=== PATIENT | female | born 1935 | race Caucasian/White ===

== ENCOUNTER 2017-07-25 11:40 | Emergency (ER) | payer OTHER ==
[~2017-07-25] VITALS: Ht 160 cm; Wt 97.1 kg
[~2017-07-25 11:40] MED LIST: ALBUAER17 INH; FLUT250M9 INH; HYDR25TA4 PO; METO25TA5 PO; SIMV-8 PO; WARF5TAB71 PO
[2017-07-25 13:17] LABS: Basophils # (auto) 0.1 uL; Eosinophils # (auto) 0.4 uL; Eosinophils % (auto) 3.9 % (0.0-7.0); Hematocrit 48.4 % (36.0-46.0); Lymphocytes # (auto) 3.3 uL; Lymphocytes % (auto) 29.8 % (10.0-50.0); Mean Corpuscular Hemoglobin 30.1 pg (28.0-32.0); Mean Corpuscular Volume 91.1 fL (80.0-100.0); Monocytes # (auto) 0.9 uL; Neutrophils # (auto) 6.3 uL; Neutrophils % (auto) 57.3 % (37.0-80.0); Platelet Count (auto) 300 10^3/uL (140-450); Red Blood Cells 5.31 10^6/uL (4.0-5.20); Red Cell Distribution Width 13.9 % (11.8-14.3)
[2017-07-25 13:32] LABS: Alanine Aminotransferase 27 U/L (13-56); Albumin 3.3 g/dL (3.4-5.0); Anion Gap 4 (5-15); Aspartate Aminotransferase 19 U/L (15-37); BUN/Creatinine Ratio 16.8; Blood Urea Nitrogen 17 mg/dL (7-18); Calcium 8.9 mg/dL (8.5-10.1); Carbon Dioxide 34 mmol/L (21-32); Chloride 103 mmol/L (98-107); GFR African American 68 mL/min; GFR Non-African American 56 mL/min; Glucose 101 mg/dL (74-106); Potassium 3.3 mmol/L (3.5-5.1); Sodium 141 mmol/L (136-145)
[2017-07-25 13:37] LABS: Alkaline Phosphatase 42 U/L (45-117); Bilirubin, Total 0.4 mg/dL (0.2-1.0); Total Protein 7.2 g/dL (6.4-8.2)
[2017-07-25] MEDS ORDERED: POTASSIUM CHL 10% (20 MEQ/15ML) 15ml ORAL SOLN PO ONE (14:30)
[2017-07-25 14:39] VITALS: BP 150/89
== END 2017-07-25 14:42 | disposition home or self-care (01) ==
LOC: ER 11:40
DX: J04.0 Acute laryngitis (principal); R07.9 Chest pain, unspecified; J45.909 Unspecified asthma, uncomplicated; I10 Essential (primary) hypertension; E78.5 Hyperlipidemia, unspecified; Z90.49 Acquired absence of other specified parts of digestive tract; Z90.710 Acquired absence of both cervix and uterus; Z79.01 Long term (current) use of anticoagulants; Z86.711 Personal history of pulmonary embolism
CPT/HCPCS: 36415; 71046; 80053; 84484; 85025; 93005

== ENCOUNTER 2019-11-22 10:10 | Inpatient (IN) | payer OTHER ==
[~2019-11-22] VITALS: Ht 160 cm; Wt 105.0 kg
[~2019-11-22 10:10] MED LIST changes: -ALBUAER17 INH; -METO25TA5 PO; -WARF5TAB71 PO
[2019-11-22] MEDS ORDERED: FUROSEMIDE 20 MG/2 ML VIAL IV ONE (10:30)
[2019-11-22] MEDS ORDERED: methylPREDNISolone SOD SUCC 125 MG/2 ML VL IV ONE (10:30)
[2019-11-22 10:52] LABS: Basophils # (auto) 0.1 10 ^3/uL (0-0.2); Basophils % (auto) 1.3 % (0.0-2.0); Eosinophils # (auto) 0.5 10 ^3/uL (0-0.8); Eosinophils % (auto) 4.8 % (0.0-7.0); Hematocrit 51.1 % (36.0-46.0); Hemoglobin 16.4 g/dL (12.2-16.2); Lymphocytes % (auto) 27.5 % (10.0-50.0); Mean Corpuscular Hemoglobin 28.7 pg (28.0-32.0); Mean Corpuscular Volume 89.7 fL (80.0-100.0); Monocytes # (auto) 0.7 10 ^3/uL (0-1.3); Monocytes % (auto) 6.2 % (0.0-12.0); Neutrophils # (auto) 6.5 10 ^3/uL (1.6-8.6); Neutrophils % (auto) 60.2 % (37.0-80.0); Nucleated Red Blood Cells % 0.1 %; Platelet Count (auto) 241 10^3/uL (140-450); Red Cell Distribution Width 14.2 % (11.8-14.3); White Blood Cell 10.8 10^3/uL (4.4-10.8)
[2019-11-22] MEDS ORDERED: IPRATROPIUM BROM 0.5 MG/2.5ML INH SOL NEB ONE (11:00)
[2019-11-22] MEDS ORDERED: ALBUTEROL SULF 2.5 MG/0.5ML(0.5%) NEB SOLN NEB ONE (11:00)
[2019-11-22 11:07] LABS: INR 1.01 (0.9-1.15); Partial Thromboplastin Time 24.2 sec (23.64-32.05)
[2019-11-22 11:08] LABS: Alanine Aminotransferase 30 U/L (13-56); Albumin 3.5 g/dL (3.4-5.0); Anion Gap 8 (5-15); Blood Urea Nitrogen 17 mg/dL (7-18); Carbon Dioxide 27 mmol/L (21-32); Chloride 106 mmol/L (98-107); Glucose 129 mg/dL (74-106); Potassium 4.3 mmol/L (3.5-5.1); Sodium 141 mmol/L (136-145)
[2019-11-22 11:14] LABS: Alkaline Phosphatase 47 U/L (45-117); Aspartate Aminotransferase 23 U/L (15-37); BUN/Creatinine Ratio 16.5; Bilirubin, Total 0.5 mg/dL (0.2-1.0); GFR African American 66 mL/min; GFR Non-African American 55 mL/min
[2019-11-22 11:42] LABS: Urine WBC None Seen /hpf (0 - 5)
[2019-11-22 12:12] LABS: Urine Bacteria NONE SEEN /hpf (None Seen); Urine Blood Negative /uL (Negative); Urine Mucus FEW (None Seen); Urine Specific Gravity 1.007 (1.001-1.035)
[2019-11-22] MEDS ORDERED: FURO20TA3 PO (12:42)
[2019-11-22] MEDS ORDERED: POTA-220 PO (12:42)
[2019-11-22] MEDS ORDERED: ALBU108A14 IN (12:42)
[2019-11-22] MEDS ORDERED: ALBUTEROL SULF 2.5 MG/0.5ML(0.5%) NEB SOLN NEB PRN (14:30)
[2019-11-22] MEDS ORDERED: LORazepam 0.5 MG TAB PO PRN (14:30)
[2019-11-22] MEDS ORDERED: TEMAZEPAM 15 MG CAP PO PRN (14:30)
[2019-11-22] MEDS ORDERED: DOXYCYCLINE 100MG/250ML 250 ML IV SCH (14:30)
[2019-11-22] MEDS ORDERED: MORPHINE SULF INJ 2 MG/ML SYRINGE 1ML IV PRN (14:30)
[2019-11-22] MEDS ORDERED: DEXTROSE (50%) 50ML SYRG IV PRN (14:30)
[2019-11-22] MEDS ORDERED: LACTULOSE 20Gm/30ML SOLN PO PRN (14:30)
[2019-11-22] MEDS ORDERED: NITROGLYCERIN 0.4 MG SL TAB SL PRN (14:30)
[2019-11-22] MEDS ORDERED: PROMETHAZINE HCL 25 MG/ML 1ML IV PRN (14:30)
[2019-11-22 14:37] VITALS: BP 156/66
[2019-11-22] MEDS: DOXYCYCLINE 100 MG TAB/CAP PO SCH ×2 (15:24→22:33)
[2019-11-22 17:03] VITALS: BP 141/77
--- NOTE | 2019-11-22 17:03 | NUR ---
Telemetry admit from ER ANDRIYPLACIDO Krueger admitted to Telemetry unit after SBAR received. Patient oriented to ROCKY LOZADA primary RN, unit, room 217B, and unit policies regarding patient care and visiting hours. Patient now on continuous telemetry monitoring, tele box # 42 and telemetry reading on arrival to unit is NORMAL SINUS RHYTHM 89. Patient placed on bedside oxygen at 2L/m via nasal cannula with oxygen saturation at 93%, weighed by bedscale and encouraged to call if they need something. All questions and concerns addressed, patient verbalized understanding.
[2019-11-22] MEDS: ACCU-CHEK COMFORT CURVE STRIP VI SCH ×2 (17:17→22:34)
--- NOTE | 2019-11-22 17:20 | NUR ---
PAGED HOSPITALIST REGARDING BLOOD SUGAR Blood sugar 260, no sliding scale ordered. Gi RODRIGUEZ ordered moderate scale, order read back and verified.
[2019-11-22 17:43] VITALS: BP 141/77
[2019-11-22] MEDS: methylPREDNISolone SOD SUCC 40 MG/ML VL IV SCH ×2 (17:44→23:43)
[2019-11-22] MEDS: InsuLIN REG 1unit/0.01ml Soln (100units/ml) SC SCH ×2 (17:44→22:53)
--- NOTE | 2019-11-22 17:50 | NUR ---
PATIENT MEDICATIONS TAKEN TO PHARMACY POM WRISTBAND PLACED ON PATIENT AND SUPERVISOR FELLING BUCKING CHART.
--- NOTE | 2019-11-22 18:37 | NUR ---
CALL FROM FAMILY call from patient's daughter Chey. Patient's daughter is deaf and pet handler was on the phone, after verification of password she was updated on the plan of care and the patient's current status. All questions were answered and she verbalized understanding.
[2019-11-22] MEDS: ALBUTEROL SULF 2.5 MG/0.5ML(0.5%) NEB SOLN NEB SCH (18:47)
[2019-11-22] MEDS: IPRATROPIUM BROM 0.5 MG/2.5ML INH SOL NEB SCH (18:48)
[2019-11-22] MEDS: BUDESONIDE (INHALATION) 0.5 MG/2 ML NEB NEB SCH (18:48)
--- NOTE | 2019-11-22 19:40 | NUR ---
Opening Shift Note Assumed care of patient, awake and alert, oriented x 4, follows direction. On oxygen at 2L via NC with even and unlabored respirations, no S/S of distress/SOB or pain. patient turns independently in bed. Patient uses BSC independently. Bed in low locked position with side rails up x 2 and call light within reach. Instructed on POC and to call for assist PRN, will continue to monitor for changes Q1hr and PRN.
[2019-11-22 22:00] VITALS: BP 162/68
[2019-11-22] MEDS: FAMOTIDINE 20 MG TAB PO SCH (22:33)
[2019-11-22] MEDS: SODIUM CHLOR 0.9% PF (SALINE LOCK) 10ML VIAL/SYR IV SCH (22:33)
[2019-11-22] MEDS: ATORVASTATIN 20 MG TAB PO SCH (22:34)
[2019-11-22] MEDS: traMADol HCL 50 MG TAB PO PRN (22:44)
[2019-11-22 22:53] VITALS: BP 143/71
[2019-11-23] MEDS: IPRATROPIUM BROM 0.5 MG/2.5ML INH SOL NEB SCH ×4 (00:15→19:55)
[2019-11-23] MEDS: ALBUTEROL SULF 2.5 MG/0.5ML(0.5%) NEB SOLN NEB SCH ×4 (00:15→19:55)
[2019-11-23 05:00] VITALS: BP 144/65
[2019-11-23] MEDS: ACCU-CHEK COMFORT CURVE STRIP VI SCH ×4 (06:05→22:40)
[2019-11-23] MEDS: SODIUM CHLOR 0.9% PF (SALINE LOCK) 10ML VIAL/SYR IV SCH ×3 (06:05→22:38)
[2019-11-23] MEDS: methylPREDNISolone SOD SUCC 40 MG/ML VL IV SCH ×4 (06:18→22:38)
[2019-11-23] MEDS: InsuLIN REG 1unit/0.01ml Soln (100units/ml) SC SCH ×4 (06:24→22:55)
[2019-11-23] MEDS: BUDESONIDE (INHALATION) 0.5 MG/2 ML NEB NEB SCH ×2 (06:27→19:55)
--- NOTE | 2019-11-23 07:07 | NUR ---
Closing Note patient awake resting in bed with even and unlabored respirations, on oxygen at 2L via NC, no s/s of distress. Bed in lowest locked position with side rails up x 2 and call light within reach. Endorsed care to day shift RN.
[2019-11-23 09:00] VITALS: BP 132/72
--- NOTE | 2019-11-23 09:06 | NUR ---
OPENING SHIFT NOTE: PATIENT RESTING IN BED, ASLEEP. EASILY AWOKE. A/OX4, NO C/O PAIN. UPDATED ON PLAN OF CARE. RESPIRATIONS EVEN AND UNLABORED. CALL LIGHT WITHIN REACH, FALL PRECAUTIONS IN PLACE. WILL CONTINUE TO MONITOR.
[2019-11-23] MEDS: ENOXAPARIN SOD 40 MG/0.4 ML SYRINGE SC SCH (09:53)
[2019-11-23] MEDS: FUROSEMIDE 20 MG TAB PO SCH (09:53)
[2019-11-23] MEDS: POTASSIUM CHL 20 Meq TABLET PO SCH (09:53)
[2019-11-23] MEDS: traMADol HCL 50 MG TAB PO PRN (09:54)
[2019-11-23] MEDS: FAMOTIDINE 20 MG TAB PO SCH ×2 (09:54→22:39)
[2019-11-23] MEDS: DOXYCYCLINE 100 MG TAB/CAP PO SCH ×2 (09:54→22:40)
[2019-11-23] MEDS ORDERED: DOCUSATE SOD 100 MG CAP PO PRN (12:15)
[2019-11-23 12:53] VITALS: BP 123/44
--- NOTE | 2019-11-23 13:10 | NUR ---
MD ZOIE SPEARS. CALL MADE TO FLOORING MACHINE FEEDER KARLEY.
--- NOTE | 2019-11-23 13:46 | NUR ---
SOLU-MEDROL: 40MG DOSE CHANGED TO 60. 40MG WASTED, WILL ADMINISTER 60 ORDERED BY MD LINO.
[2019-11-23 17:00] VITALS: BP 134/75
--- NOTE | 2019-11-23 17:07 | NUR ---
ARBOLEDA REMOVED: CATHETER INTACT, 10 CC ASPIRATED OUT OF BALLOON. PATIENT ABLE TO AMBULATE TO TOILET SAFELY INDEPENDENTLY.
--- NOTE | 2019-11-23 18:50 | NUR ---
CARE ENDORSED TO NOC RN.
--- NOTE | 2019-11-23 19:40 | NUR ---
Opening Shift Note Assumed care of patient, awake and alert x4. No S/S of distress/SOB or pain. Call light is within reach, side rails up x2, bed is in the lowest position, fall precautions are in place. Instructed on POC and to call for assist PRN, will continue to monitor for changes Q1hr and PRN.
[2019-11-23 20:00] VITALS: BP 125/56
--- NOTE | 2019-11-23 20:20 | NUR ---
Patient's daughter Chey called, password provided, she was updated on patient's status and current POC. All questions and concerns answered.
[2019-11-23] MEDS: ACETAMINOPHEN 500 MG TAB PO PRN (21:18)
[2019-11-23 22:00] VITALS: BP 125/56
[2019-11-23] MEDS: ATORVASTATIN 20 MG TAB PO SCH (22:39)
[2019-11-24] MEDS: ALBUTEROL SULF 2.5 MG/0.5ML(0.5%) NEB SOLN NEB SCH ×7 (00:06→21:48)
[2019-11-24] MEDS: IPRATROPIUM BROM 0.5 MG/2.5ML INH SOL NEB SCH ×7 (00:06→21:48)
[2019-11-24 05:00] VITALS: BP 138/61
[2019-11-24] MEDS: SODIUM CHLOR 0.9% PF (SALINE LOCK) 10ML VIAL/SYR IV SCH ×3 (06:27→21:55)
[2019-11-24] MEDS: methylPREDNISolone SOD SUCC 40 MG/ML VL IV SCH ×3 (06:28→21:56)
[2019-11-24] MEDS: InsuLIN REG 1unit/0.01ml Soln (100units/ml) SC SCH ×4 (06:30→22:02)
[2019-11-24] MEDS: ACCU-CHEK COMFORT CURVE STRIP VI SCH ×4 (06:31→21:56)
[2019-11-24] MEDS: BUDESONIDE (INHALATION) 0.5 MG/2 ML NEB NEB SCH ×2 (07:02→21:48)
--- NOTE | 2019-11-24 07:20 | NUR ---
Opening Shift Note Assumed care of patient, awake and alert. No S/S of distress/SOB or pain. Instructed on POC and to call for assist PRN, will continue to monitor for changes Q1hr and PRN. Bed locked in lowest position with two side rails up and call light in reach.
[2019-11-24 08:00] VITALS: BP 137/82
[2019-11-24 09:27] VITALS: BP 137/82
[2019-11-24] MEDS: FUROSEMIDE 20 MG TAB PO SCH (10:54)
[2019-11-24] MEDS: POTASSIUM CHL 20 Meq TABLET PO SCH (10:54)
[2019-11-24] MEDS: FAMOTIDINE 20 MG TAB PO SCH ×2 (10:54→21:56)
[2019-11-24] MEDS: ENOXAPARIN SOD 40 MG/0.4 ML SYRINGE SC SCH (10:55)
[2019-11-24] MEDS: DOXYCYCLINE 100 MG TAB/CAP PO SCH ×2 (10:55→21:56)
[2019-11-24] MEDS: ACETAMINOPHEN 500 MG TAB PO PRN (12:36)
[2019-11-24 13:00] VITALS: BP 130/52
[2019-11-24] MEDS ORDERED: ALBUTEROL SULF 2.5 MG/0.5ML(0.5%) NEB SOLN NEB PRN (15:00)
--- NOTE | 2019-11-24 15:30 | NUR ---
TRANSFER RECEIVED REPORT FROM KALI STEVENSON. ALL QUESTIONS/CONCERNS ANSWERED. WILL CONTINUE PLAN OF CARE
[2019-11-24 17:00] VITALS: BP 123/63
--- NOTE | 2019-11-24 19:35 | NUR ---
Opening Shift Note Assumed care of patient, awake and alert X4. No S/S of distress/SOB or pain. Call light is within reach, side rails up x2, bed is in the lowest position. Instructed on POC and to call for assist PRN. All questions and concerns answered, will continue to monitor for changes Q1hr and PRN. Bed locked in lowest position with two side rails up and call light in reach.
[2019-11-24 21:49] VITALS: BP 139/64
[2019-11-24] MEDS: ATORVASTATIN 20 MG TAB PO SCH (22:02)
--- NOTE | 2019-11-24 23:10 | NUR ---
IV removal from RFA due to leaking IV DC'd with clean sterile technique, catheter fully intact. Pressure dressing applied to site. Patient tolerated well.
--- NOTE | 2019-11-24 23:18 | NUR ---
IV insertion IV access obtained, via clean sterile technique by inserting 22 gauge catheter at LFA after 3 attempt(s). IV secured properly. No trauma to site. Patient tolerated well.
[2019-11-25] VITALS (7 sets, daily range): BP systolic 107–144; BP diastolic 57–80
[2019-11-25] MEDS: ALBUTEROL SULF 2.5 MG/0.5ML(0.5%) NEB SOLN NEB SCH ×6 (02:00→22:07)
[2019-11-25] MEDS: IPRATROPIUM BROM 0.5 MG/2.5ML INH SOL NEB SCH ×6 (02:00→22:07)
--- NOTE | 2019-11-25 02:07 | NUR ---
Respiratory note: SCHEDULED MED NEB TX NOT GIVEN. PT WAS ASLEEP, NO RESP DISTRESS NOTED. PT DID NOT WANT TX AT THIS TIME.
--- NOTE | 2019-11-25 04:32 | NUR ---
Paged respiratory. Patient is asking for a breathing treatment.
--- NOTE | 2019-11-25 04:33 | NUR ---
Patient is complaining of a headache 6/0-10 and is requesting a Tylenol. Tylenol given for pain, will reassess.
[2019-11-25] MEDS: ACETAMINOPHEN 500 MG TAB PO PRN (04:36)
--- NOTE | 2019-11-25 04:40 | NUR ---
RT is at bedside administering a breathing treatment.
[2019-11-25] MEDS: methylPREDNISolone SOD SUCC 40 MG/ML VL IV SCH ×3 (06:41→22:10)
[2019-11-25] MEDS: SODIUM CHLOR 0.9% PF (SALINE LOCK) 10ML VIAL/SYR IV SCH ×3 (06:41→22:10)
[2019-11-25] MEDS: ACCU-CHEK COMFORT CURVE STRIP VI SCH ×4 (06:41→22:12)
[2019-11-25] MEDS: InsuLIN REG 1unit/0.01ml Soln (100units/ml) SC SCH ×4 (06:43→22:13)
[2019-11-25] MEDS: BUDESONIDE (INHALATION) 0.5 MG/2 ML NEB NEB SCH ×2 (09:53→22:07)
[2019-11-25] MEDS: FAMOTIDINE 20 MG TAB PO SCH ×2 (10:30→22:11)
[2019-11-25] MEDS: POTASSIUM CHL 20 Meq TABLET PO SCH (10:30)
[2019-11-25] MEDS: FUROSEMIDE 20 MG TAB PO SCH (10:30)
[2019-11-25] MEDS: DOXYCYCLINE 100 MG TAB/CAP PO SCH ×2 (10:30→22:11)
[2019-11-25] MEDS: ENOXAPARIN SOD 40 MG/0.4 ML SYRINGE SC SCH (10:31)
--- NOTE | 2019-11-25 12:40 | NUR ---
Est energy needs [id number] kcal (14-16 kcal/kg BW 102.4kg) Est protein needs 52-68g (1-1.3g/kg IBW 52.3kg) Will reassess prn. Addendum: 11/25/19 at [address] Amended: Links added.
--- NOTE | 2019-11-25 19:02 | NUR ---
RT NOTE PT WAS SEEN BY RT FOR HHN TX. PT TOLERATES WELL VIA MOUTHPIECE. NO ADVERSE REACTION NOTED. PT FOUND ON RROM AIR WITH SATS AT 91%. NASAL CANNULA LEFT ON AT 2L FOR PT USE THROUGHOUT THE NIGHT IF NEEDED. CONT ORDERED Addendum: 11/25/19 at 1931 by Tanika Son RT Amended: Links added.
--- NOTE | 2019-11-25 19:10 | NUR ---
Opening shift note Assumed care of patient who is A&Ox4, respirations even and non-labored with no s/s of distress. Discussed POC with patient who verbalized understanding. IV patent and saline locked at this time. Bed in lowest locked position with 2 side rails up. Call light within reach. Will continue to monitor.
[2019-11-25] MEDS: ATORVASTATIN 20 MG TAB PO SCH (22:10)
--- NOTE | 2019-11-25 22:17 | NUR ---
RT NOTE PT WAS SEEN BY RT FOR HHN TX. PT TOLERATES WELL VIA MOUTHPIECE. NO ADVERSE REACTION NOTED. CONT ORDERED Addendum: 11/26/19 at 0308 by Tanika Son RT Amended: Links added.
[2019-11-26] MEDS: ALBUTEROL SULF 2.5 MG/0.5ML(0.5%) NEB SOLN NEB SCH ×5 (02:12→18:25)
[2019-11-26] MEDS: IPRATROPIUM BROM 0.5 MG/2.5ML INH SOL NEB SCH ×5 (02:12→18:25)
--- NOTE | 2019-11-26 02:30 | NUR ---
RT NOTE PT WAS SEEN BY RT FOR HHN TX. PT TOLERATES WELL VIA MOUTHPIECE. NO ADVERSE REACTION NOTED. CONT ORDERED Addendum: 11/26/19 at 0309 by Tanika Son RT Amended: Links added.
[2019-11-26 04:55] VITALS: BP 105/49
[2019-11-26] MEDS: methylPREDNISolone SOD SUCC 40 MG/ML VL IV SCH ×2 (06:03→14:49)
[2019-11-26] MEDS: SODIUM CHLOR 0.9% PF (SALINE LOCK) 10ML VIAL/SYR IV SCH ×2 (06:03→14:00)
[2019-11-26] MEDS: ACCU-CHEK COMFORT CURVE STRIP VI SCH ×3 (06:04→17:00)
[2019-11-26 06:14] LABS: Basophils # (auto) 0 10 ^3/uL (0-0.2); Basophils % (auto) 0.2 % (0.0-2.0); Eosinophils # (auto) 0 10 ^3/uL (0-0.8); Hematocrit 49.6 % (36.0-46.0); Hemoglobin 16.3 g/dL (12.2-16.2); Lymphocytes # (auto) 1.2 10 ^3/uL (0.4-5.4); Lymphocytes % (auto) 6.9 % (10.0-50.0); Mean Corpuscular Hemoglobin 29.4 pg (28.0-32.0); Mean Corpuscular Hgb Conc. 32.8 g/dL (32.0-36.0); Mean Corpuscular Volume 89.7 fL (80.0-100.0); Monocytes # (auto) 0.5 10 ^3/uL (0-1.3); Monocytes % (auto) 2.9 % (0.0-12.0); Neutrophils # (auto) 15.8 10 ^3/uL (1.6-8.6); Nucleated Red Blood Cells % 0.1 %; Platelet Count (auto) 293 10^3/uL (140-450); Red Blood Cells 5.53 10^6/uL (4.0-5.20); Red Cell Distribution Width 14.2 % (11.8-14.3); White Blood Cell 17.5 10^3/uL (4.4-10.8)
[2019-11-26] MEDS: InsuLIN REG 1unit/0.01ml Soln (100units/ml) SC SCH ×3 (06:15→17:00)
[2019-11-26] MEDS: ACETAMINOPHEN 500 MG TAB PO PRN (06:16)
--- NOTE | 2019-11-26 06:20 | NUR ---
Pain Patient c/o 08/06 headache. Administered 500 mg Tylenol per EMAR. Will continue to monitor.
[2019-11-26 06:32] LABS: Calcium 9.2 mg/dL (8.5-10.1); Magnesium 2.6 mg/dL (1.6-2.6); Potassium 4.6 mmol/L (3.5-5.1)
[2019-11-26 06:35] LABS: BUN/Creatinine Ratio 28.1
--- NOTE | 2019-11-26 07:15 | NUR ---
Closing shift note Patient sitting up, A&Ox4, no s/s of distress. Endorsed care to day shift RN, Melodie.
[2019-11-26 08:00] VITALS: BP 149/80
[2019-11-26 09:11] VITALS: BP 149/80
[2019-11-26] MEDS: ENOXAPARIN SOD 40 MG/0.4 ML SYRINGE SC SCH (10:00)
[2019-11-26] MEDS: BUDESONIDE (INHALATION) 0.5 MG/2 ML NEB NEB SCH ×2 (10:39→18:26)
[2019-11-26] MEDS: POTASSIUM CHL 20 Meq TABLET PO SCH (11:04)
[2019-11-26] MEDS: DOXYCYCLINE 100 MG TAB/CAP PO SCH (11:04)
[2019-11-26] MEDS: FAMOTIDINE 20 MG TAB PO SCH (11:04)
[2019-11-26] MEDS: FUROSEMIDE 20 MG TAB PO SCH (11:04)
[2019-11-26 12:38] VITALS: BP 135/73
[2019-11-26 17:09] VITALS: BP 149/80
--- NOTE | 2019-11-26 18:30 | NUR ---
Discharge instructions given as ordered. Encourage to follow up with PMD as instructed. All questions and concerns addressed. Patient verbalized understanding. Medication reconciliation form completed and copy given to patient. No Home medications held in Pharmacy and none to be returned to patient, and no needed vaccines given. IV removed with catheter intact, pressure dressing applied. Telemetry unit returned to ICU. Patient taken to vehicle via wheelchair with all personal belongings, accompanied by staff and family member. No distress noted at time of departure. Prescriptions in hand.
== END 2019-11-26 18:40 | disposition home or self-care (01) | DRG 202 ==
LOC: ER 10:10 → TELE 10:11 → TELE-CENTR 17:15
PROVIDERS: ADMIT Internal Medicine; ATTEND Internal Medicine
DX: J45.41 Moderate persistent asthma with (acute) exacerbation (principal); J96.01 Acute respiratory failure with hypoxia; J44.1 Chronic obstructive pulmonary disease with (acute) exacerbation; F41.9 Anxiety disorder, unspecified; E66.01 Morbid (severe) obesity due to excess calories; D72.829 Elevated white blood cell count, unspecified; I50.9 Heart failure, unspecified; I11.0 Hypertensive heart disease with heart failure; Z71.3 Dietary counseling and surveillance; Z57.31 Occupational exposure to environmental tobacco smoke; Z90.710 Acquired absence of both cervix and uterus; Z90.49 Acquired absence of other specified parts of digestive tract; Z82.5 Family history of asthma and other chronic lower respiratory diseases; T38.0X5A Adverse effect of glucocorticoids and synthetic analogues, initial encounter; Y92.89 Other specified places as the place of occurrence of the external cause; Z68.39 Body mass index [BMI] 39.0-39.9, adult
CPT/HCPCS: 36415; 51702; 71045; 71046; 80048; 80053; 81001; 82728; 82962; 83036; 83615; 83735; 83880; 84484; 85025; 85610; 85730; 87070; 87804; 87880; 93005; 94640; 96372; 96374; 96375; 99291; G0378; J1815

== ENCOUNTER → 2022-04-09 | Emergency (ER) | payer OTHER ==
[~2022-04-09] VITALS: Ht 160 cm; Wt 99.5 kg
[~2022-04-09] MED LIST changes: +ALBU108A14 IN; +ALBUTEROL SULF 2.5 MG/0.5ML(0.5%) NEB SOLN NEB ONE; +AZIT500T PO; +AZITHROMYCIN 250 MG TAB PO ONE; +DexAMETHasone 4 MG TAB PO ONE; +FURO20TA3 PO; -HYDR25TA4 PO; +IPRATROPIUM BROM 0.5 MG/2.5ML INH SOL NEB ONE; +LORazepam 2MG/ML-1ML VIAL IV ONE; +MAGNESIUM SULFATE 1GM/100ML 100 ML IV ONE; +METH4PAK PO; +POTA-220 PO; +methylPREDNISolone SOD SUCC 125 MG/2 ML VL IV ONE
[2022-04-09 07:38] LABS: Basophils # (auto) 0.1 10 ^3/uL (0-0.2); Basophils % (auto) 0.4 % (0.0-2.0); Eosinophils # (auto) 0.2 10 ^3/uL (0-0.8); Eosinophils % (auto) 1.4 % (0.0-7.0); Hematocrit 47.7 % (36.0-46.0); Hemoglobin 15.3 g/dL (12.2-16.2); Lymphocytes # (auto) 2.7 10 ^3/uL (0.4-5.4); Lymphocytes % (auto) 16.4 % (10.0-50.0); Mean Corpuscular Hemoglobin 29.3 pg (28.0-32.0); Mean Corpuscular Hgb Conc. 32.2 g/dL (32.0-36.0); Mean Corpuscular Volume 91.3 fL (80.0-100.0); Monocytes # (auto) 1.2 10 ^3/uL (0-1.3); Monocytes % (auto) 7.6 % (0.0-12.0); Neutrophils % (auto) 74.2 % (37.0-80.0); Red Blood Cells 5.23 10^6/uL (4.0-5.20); Red Cell Distribution Width 14.3 % (11.8-14.3); White Blood Cell 16.2 10^3/uL (4.4-10.8)
[2022-04-09 07:45] LABS: Albumin 3.1 g/dL (3.4-5.0); BUN/Creatinine Ratio 15.1; Potassium 3.9 mmol/L (3.5-5.1)
[2022-04-09 07:48] LABS: Bilirubin, Total 0.6 mg/dL (0.2-1.0); Total Protein 6.5 g/dL (6.4-8.2)
[2022-04-09 16:14] VITALS: BP 154/93
== END | disposition admitted as inpatient to this hospital (09) ==
LOC: ER 06:34
DX: J45.909 Unspecified asthma, uncomplicated (principal); I10 Essential (primary) hypertension; Z90.49 Acquired absence of other specified parts of digestive tract; Z90.710 Acquired absence of both cervix and uterus; Z90.89 Acquired absence of other organs; Z98.890 Other specified postprocedural states
CPT/HCPCS: 36415; 71046; 80053; 84484; 85025; 93005; 94644; 96365; 96366; 96375; 99291; J2060; J2930; J3475; J7644; J8540; 94640

== ENCOUNTER 2022-07-17 23:06 | Inpatient (IN) | payer OTHER ==
[~2022-07-17] VITALS: Ht 160 cm; Wt 96.3 kg
[~2022-07-17 23:06] MED LIST changes: -ALBUTEROL SULF 2.5 MG/0.5ML(0.5%) NEB SOLN NEB ONE; -AZITHROMYCIN 250 MG TAB PO ONE; -DexAMETHasone 4 MG TAB PO ONE; -IPRATROPIUM BROM 0.5 MG/2.5ML INH SOL NEB ONE; -LORazepam 2MG/ML-1ML VIAL IV ONE; -MAGNESIUM SULFATE 1GM/100ML 100 ML IV ONE; -methylPREDNISolone SOD SUCC 125 MG/2 ML VL IV ONE
[2022-07-18] MEDS ORDERED: ALBUTEROL SULF 2.5 MG/0.5ML(0.5%) NEB SOLN NEB ONE ×3 (00:30→08:30)
[2022-07-18] MEDS ORDERED: DexAMETHasone SOD PHOS 10MG/1ML VIAL INJ IV ONE (00:30)
[2022-07-18] MEDS ORDERED: MAGNESIUM SULFATE 1GM/100ML 100 ML IV ONE (00:30)
[2022-07-18] MEDS ORDERED: IPRATROPIUM BROM 0.5 MG/2.5ML INH SOL NEB ONE ×2 (00:30→08:30)
[2022-07-18] MEDS ORDERED: AZITHROMYCIN 500MG/ 250ML 250 ML IV ONE (00:30)
[2022-07-18] MEDS ORDERED: ALBUTEROL MEDNEB 2.5 mg/3ml NEB ONE ×6 (00:34→21:56)
[2022-07-18 01:08] LABS: Basophils # (auto) 0.1 10 ^3/uL (0-0.2); Basophils % (auto) 0.5 % (0.0-2.0); Eosinophils # (auto) 0.2 10 ^3/uL (0-0.8); Eosinophils % (auto) 1.6 % (0.0-7.0); Hematocrit 43.7 % (36.0-46.0); Hemoglobin 14.5 g/dL (12.2-16.2); Lymphocytes # (auto) 1.5 10 ^3/uL (0.4-5.4); Lymphocytes % (auto) 11.4 % (10.0-50.0); Mean Corpuscular Hemoglobin 30.4 pg (28.0-32.0); Mean Corpuscular Hgb Conc. 33.2 g/dL (32.0-36.0); Mean Corpuscular Volume 91.7 fL (80.0-100.0); Monocytes # (auto) 1.7 10 ^3/uL (0-1.3); Monocytes % (auto) 12.3 % (0.0-12.0); Neutrophils # (auto) 10.1 10 ^3/uL (1.6-8.6); Neutrophils % (auto) 74.2 % (37.0-80.0); Nucleated Red Blood Cells % 0.1 %; Red Blood Cells 4.76 10^6/uL (4.0-5.20); Red Cell Distribution Width 14.2 % (11.8-14.3); White Blood Cell 13.6 10^3/uL (4.4-10.8)
[2022-07-18 01:23] LABS: INR 0.96 (0.9-1.15); Partial Thromboplastin Time 24.5 sec (24.6-33.4)
[2022-07-18 01:24] LABS: Albumin 3.4 g/dL (3.4-5.0); BUN/Creatinine Ratio 22.3; Calcium 9.3 mg/dL (8.5-10.1); Potassium 3.8 mmol/L (3.5-5.1)
[2022-07-18 01:27] LABS: Bilirubin, Total 0.3 mg/dL (0.2-1.0); Total Protein 6.9 g/dL (6.4-8.2)
[2022-07-18] MEDS ORDERED: cefTRIAXone 1GM/50ML D5W 50 ML IV ONE (05:30)
[2022-07-18] MEDS ORDERED: FUROSEMIDE 40 MG/4 ML VIAL IV ONE (08:30)
[2022-07-18] MEDS ORDERED: NITROGLYCERIN 0.4 MG SL TAB SL PRN (11:30)
[2022-07-18] MEDS ORDERED: MORPHINE SULFATE INJ 2 MG/ml SYRG IV PRN (11:30)
[2022-07-18] MEDS ORDERED: PANTOPRAZOLE 40 MG/10 ML VIAL INJ IV ONE (11:30)
[2022-07-18] MEDS: ALBUTEROL SULF 2.5 MG/0.5ML(0.5%) NEB SOLN NEB SCH ×3 (12:01→21:59)
[2022-07-18] MEDS: IPRATROPIUM BROM 0.5 MG/2.5ML INH SOL NEB SCH ×2 (12:01→18:19)
[2022-07-18 12:04] LABS: Magnesium 2.6 mg/dL (1.6-2.6)
[2022-07-18] MEDS ORDERED: PANTOPRAZOLE 40 MG TAB PO ONE (12:15)
[2022-07-18] MEDS ORDERED: methylPREDNISolone SOD SUCC 40 MG/ML VL IM ONE (12:30)
[2022-07-18] MEDS ORDERED: ALPRAZolam 0.5 MG TAB PO ONE (12:45)
[2022-07-18 13:36] VITALS: BP 106/50
[2022-07-18] MEDS: SODIUM CHLORIDE 0.9% 1,000 ML IV SCH (14:30)
[2022-07-18] MEDS ORDERED: IOHEXOL 350 MG/ML 100ML IJ ONE (16:11)
[2022-07-18] MEDS: IPRATROPIUM BROM 0.5 MG/2.5ML INH SOL NEB PRN ×2 (16:41→21:59)
[2022-07-18] MEDS: ALBUTEROL SULF 2.5 MG/0.5ML(0.5%) NEB SOLN NEB PRN (16:41)
[2022-07-18] MEDS: SODIUM CHLOR 0.9% PF (SALINE LOCK) 10ML VIAL/SYR IV SCH (19:58)
[2022-07-18] MEDS: methylPREDNISolone SOD SUCC 125 MG/2 ML VL IV SCH (21:36)
[2022-07-19] MEDS ORDERED: ALBUTEROL MEDNEB 2.5 mg/3ml NEB ONE ×4 (03:10→19:05)
[2022-07-19] MEDS: IPRATROPIUM BROM 0.5 MG/2.5ML INH SOL NEB PRN (03:18)
[2022-07-19] MEDS: ALBUTEROL SULF 2.5 MG/0.5ML(0.5%) NEB SOLN NEB PRN (03:18)
[2022-07-19] MEDS: hydrALAZINE HCL 20 MG/ML VL IV PRN ×3 (04:05→18:53)
[2022-07-19 05:30] LABS: Basophils # (auto) 0 10 ^3/uL (0-0.2); Basophils % (auto) 0.1 % (0.0-2.0); Eosinophils # (auto) 0 10 ^3/uL (0-0.8); Hematocrit 40.7 % (36.0-46.0); Hemoglobin 13.4 g/dL (12.2-16.2); Lymphocytes % (auto) 7.6 % (10.0-50.0); Mean Corpuscular Hemoglobin 30.2 pg (28.0-32.0); Mean Corpuscular Volume 91.6 fL (80.0-100.0); Monocytes # (auto) 0.6 10 ^3/uL (0-1.3); Monocytes % (auto) 4.4 % (0.0-12.0); Neutrophils # (auto) 11.3 10 ^3/uL (1.6-8.6); Neutrophils % (auto) 87.9 % (37.0-80.0); Red Blood Cells 4.44 10^6/uL (4.0-5.20); Red Cell Distribution Width 13.6 % (11.8-14.3); White Blood Cell 12.9 10^3/uL (4.4-10.8)
[2022-07-19] MEDS: IPRATROPIUM BROM 0.5 MG/2.5ML INH SOL NEB SCH ×3 (05:44→19:18)
[2022-07-19] MEDS: ALBUTEROL SULF 2.5 MG/0.5ML(0.5%) NEB SOLN NEB SCH ×2 (05:45→11:26)
[2022-07-19 06:19] LABS: Albumin 2.9 g/dL (3.4-5.0); BUN/Creatinine Ratio 32.3; Bilirubin, Total 0.7 mg/dL (0.2-1.0); Calcium 7.7 mg/dL (8.5-10.1); Total Protein 5.8 g/dL (6.4-8.2)
[2022-07-19] MEDS: SODIUM CHLORIDE 0.9% 1,000 ML IV SCH (06:54)
[2022-07-19] MEDS: cefTRIAXone 1GM/50ML D5W 50 ML IV SCH (08:54)
[2022-07-19] MEDS: PATIENTS OWN MEDICATION (Simvastatin 20 MG) PO SCH (10:00)
[2022-07-19] MEDS ORDERED: PANTOPRAZOLE 40 MG/10 ML VIAL INJ IV SCH (10:00)
[2022-07-19] MEDS: methylPREDNISolone SOD SUCC 125 MG/2 ML VL IV SCH ×2 (10:44→21:11)
[2022-07-19] MEDS: POTASSIUM CHL 20 Meq TABLET PO SCH (10:44)
[2022-07-19] MEDS: ENOXAPARIN SOD 40 MG/0.4 ML SYRINGE SC SCH (10:45)
[2022-07-19] MEDS: FUROSEMIDE 20 MG/2 ML VIAL IV SCH (10:46)
[2022-07-19] MEDS: SODIUM CHLOR 0.9% PF (SALINE LOCK) 10ML VIAL/SYR IV SCH ×2 (10:46→21:12)
[2022-07-19] MEDS: AZITHROMYCIN 500MG/ 250ML 250 ML IV SCH (10:56)
[2022-07-19 22:33] VITALS: BP 157/60
[2022-07-20] MEDS: IPRATROPIUM BROM 0.5 MG/2.5ML INH SOL NEB PRN (01:11)
[2022-07-20] MEDS: ALBUTEROL SULF 2.5 MG/0.5ML(0.5%) NEB SOLN NEB PRN (01:11)
[2022-07-20] MEDS ORDERED: ALBUTEROL MEDNEB 2.5 mg/3ml NEB ONE ×4 (01:13→17:44)
[2022-07-20 02:15] LABS: Urine Bacteria FEW /hpf (None Seen); Urine Blood Negative /uL (Negative); Urine Specific Gravity 1.018 (1.001-1.035); Urine WBC 4 /hpf (0 - 5)
[2022-07-20 05:00] VITALS: BP 188/67
[2022-07-20] MEDS: hydrALAZINE HCL 20 MG/ML VL IV PRN ×3 (05:38→18:50)
[2022-07-20] MEDS: IPRATROPIUM BROM 0.5 MG/2.5ML INH SOL NEB SCH ×3 (05:54→18:39)
[2022-07-20] MEDS: ALBUTEROL SULF 2.5 MG/0.5ML(0.5%) NEB SOLN NEB SCH ×3 (05:54→18:39)
[2022-07-20 06:45] LABS: Basophils # (auto) 0 10 ^3/uL (0-0.2); Basophils % (auto) 0.2 % (0.0-2.0); Eosinophils # (auto) 0 10 ^3/uL (0-0.8); Hematocrit 43.9 % (36.0-46.0); Hemoglobin 15.1 g/dL (12.2-16.2); Lymphocytes # (auto) 1.7 10 ^3/uL (0.4-5.4); Lymphocytes % (auto) 8.2 % (10.0-50.0); Mean Corpuscular Hemoglobin 31.3 pg (28.0-32.0); Mean Corpuscular Hgb Conc. 34.5 g/dL (32.0-36.0); Monocytes # (auto) 1.3 10 ^3/uL (0-1.3); Monocytes % (auto) 6.1 % (0.0-12.0); Neutrophils % (auto) 85.5 % (37.0-80.0); Nucleated Red Blood Cells % 0.2 %; Red Blood Cells 4.82 10^6/uL (4.0-5.20); Red Cell Distribution Width 13.5 % (11.8-14.3)
[2022-07-20 06:53] LABS: BUN/Creatinine Ratio 35.9; Calcium 9.6 mg/dL (8.5-10.1)
[2022-07-20 07:48] LABS: Potassium 4.6 mmol/L (3.5-5.1)
[2022-07-20 08:44] VITALS: BP 149/62
[2022-07-20] MEDS: FUROSEMIDE 20 MG/2 ML VIAL IV SCH (09:02)
[2022-07-20] MEDS: POTASSIUM CHL 20 Meq TABLET PO SCH (09:02)
[2022-07-20] MEDS: methylPREDNISolone SOD SUCC 125 MG/2 ML VL IV SCH ×2 (09:03→21:17)
[2022-07-20] MEDS: SODIUM CHLOR 0.9% PF (SALINE LOCK) 10ML VIAL/SYR IV SCH ×2 (09:03→21:17)
[2022-07-20] MEDS: cefTRIAXone 1GM/50ML D5W 50 ML IV SCH (09:03)
[2022-07-20] MEDS: PATIENTS OWN MEDICATION (Simvastatin 20 MG) PO SCH (09:03)
[2022-07-20] MEDS: ENOXAPARIN SOD 40 MG/0.4 ML SYRINGE SC SCH (09:03)
[2022-07-20] MEDS: AZITHROMYCIN 500MG/ 250ML 250 ML IV SCH (10:08)
[2022-07-20 14:00] VITALS: BP 166/70
[2022-07-20 17:18] VITALS: BP 175/65
[2022-07-21] VITALS (7 sets, daily range): BP systolic 140–155; BP diastolic 40–68
[2022-07-21] MEDS ORDERED: ALBUTEROL MEDNEB 2.5 mg/3ml NEB ONE ×5 (02:40→18:46)
[2022-07-21] MEDS: ALBUTEROL SULF 2.5 MG/0.5ML(0.5%) NEB SOLN NEB SCH ×3 (06:00→18:53)
[2022-07-21] MEDS: IPRATROPIUM BROM 0.5 MG/2.5ML INH SOL NEB SCH ×3 (06:25→18:53)
[2022-07-21] MEDS: methylPREDNISolone SOD SUCC 125 MG/2 ML VL IV SCH ×2 (08:34→21:35)
[2022-07-21] MEDS: POTASSIUM CHL 20 Meq TABLET PO SCH (08:34)
[2022-07-21] MEDS: FUROSEMIDE 20 MG/2 ML VIAL IV SCH (08:35)
[2022-07-21] MEDS: cefTRIAXone 1GM/50ML D5W 50 ML IV SCH (08:35)
[2022-07-21] MEDS: SODIUM CHLOR 0.9% PF (SALINE LOCK) 10ML VIAL/SYR IV SCH ×2 (08:35→21:40)
[2022-07-21] MEDS: ENOXAPARIN SOD 40 MG/0.4 ML SYRINGE SC SCH (08:35)
[2022-07-21 09:00] LABS: Basophils # (auto) 0 10 ^3/uL (0-0.2); Basophils % (auto) 0.1 % (0.0-2.0); Eosinophils # (auto) 0 10 ^3/uL (0-0.8); Hematocrit 42.4 % (36.0-46.0); Hemoglobin 13.9 g/dL (12.2-16.2); Lymphocytes # (auto) 1.6 10 ^3/uL (0.4-5.4); Lymphocytes % (auto) 9.7 % (10.0-50.0); Mean Corpuscular Hemoglobin 30.8 pg (28.0-32.0); Mean Corpuscular Hgb Conc. 32.9 g/dL (32.0-36.0); Mean Corpuscular Volume 93.7 fL (80.0-100.0); Monocytes # (auto) 1.2 10 ^3/uL (0-1.3); Monocytes % (auto) 7.3 % (0.0-12.0); Neutrophils # (auto) 13.3 10 ^3/uL (1.6-8.6); Neutrophils % (auto) 82.9 % (37.0-80.0); Nucleated Red Blood Cells % 0.1 %; Red Blood Cells 4.52 10^6/uL (4.0-5.20); Red Cell Distribution Width 13.9 % (11.8-14.3)
[2022-07-21 09:28] LABS: BUN/Creatinine Ratio 36.9; Calcium 8.2 mg/dL (8.5-10.1)
[2022-07-21] MEDS: PATIENTS OWN MEDICATION (Simvastatin 20 MG) PO SCH (10:00)
[2022-07-21] MEDS: AZITHROMYCIN 500MG/ 250ML 250 ML IV SCH (10:03)
[2022-07-21] MEDS: ALBUTEROL SULF 2.5 MG/0.5ML(0.5%) NEB SOLN NEB PRN ×2 (10:22→14:37)
[2022-07-21] MEDS: IPRATROPIUM BROM 0.5 MG/2.5ML INH SOL NEB PRN ×2 (10:22→14:37)
[2022-07-21] MEDS ORDERED: DEXTROSE (50%) 50ML SYRG IV PRN (11:00)
[2022-07-21] MEDS: InsuLIN REG 1unit/0.01ml Soln (100units/ml) SC SCH ×2 (11:47→17:22)
[2022-07-21] MEDS: ACCU-CHEK COMFORT CURVE STRIP VI SCH ×3 (11:48→21:35)
[2022-07-21] MEDS ORDERED: TEMAZEPAM 15 MG CAP PO ONE (22:00)
[2022-07-21] MEDS ORDERED: INSULIN LANTUS (GLARGINE) 1 /0.01ml (100units/ml) SC SCH (22:00)
[2022-07-21] MEDS ORDERED: InsuLIN REG 1unit/0.01ml Soln (100units/ml) SC SCH (22:00)
[2022-07-22 05:00] VITALS: BP 152/51
[2022-07-22] MEDS ORDERED: ALBUTEROL MEDNEB 2.5 mg/3ml NEB ONE ×2 (05:55→11:22)
[2022-07-22 06:25] LABS: Basophils # (auto) 0 10 ^3/uL (0-0.2); Basophils % (auto) 0.2 % (0.0-2.0); Eosinophils # (auto) 0 10 ^3/uL (0-0.8); Hematocrit 45.3 % (36.0-46.0); Hemoglobin 15.3 g/dL (12.2-16.2); Lymphocytes # (auto) 1.5 10 ^3/uL (0.4-5.4); Lymphocytes % (auto) 10.1 % (10.0-50.0); Mean Corpuscular Hemoglobin 30.6 pg (28.0-32.0); Mean Corpuscular Hgb Conc. 33.7 g/dL (32.0-36.0); Mean Corpuscular Volume 90.7 fL (80.0-100.0); Monocytes # (auto) 0.8 10 ^3/uL (0-1.3); Monocytes % (auto) 5.7 % (0.0-12.0); Neutrophils # (auto) 12.2 10 ^3/uL (1.6-8.6); Nucleated Red Blood Cells % 0.2 %; Red Blood Cells 4.99 10^6/uL (4.0-5.20); Red Cell Distribution Width 13.5 % (11.8-14.3); White Blood Cell 14.5 10^3/uL (4.4-10.8)
[2022-07-22] MEDS: ACCU-CHEK COMFORT CURVE STRIP VI SCH ×2 (06:28→11:54)
[2022-07-22] MEDS: IPRATROPIUM BROM 0.5 MG/2.5ML INH SOL NEB SCH ×2 (06:31→11:25)
[2022-07-22] MEDS: ALBUTEROL SULF 2.5 MG/0.5ML(0.5%) NEB SOLN NEB SCH ×2 (06:31→11:25)
[2022-07-22] MEDS: InsuLIN REG 1unit/0.01ml Soln (100units/ml) SC SCH ×2 (06:33→11:54)
[2022-07-22 06:34] LABS: BUN/Creatinine Ratio 35.1; Calcium 9.8 mg/dL (8.5-10.1); Potassium 4.3 mmol/L (3.5-5.1)
[2022-07-22 08:30] VITALS: BP 140/40
[2022-07-22 09:00] VITALS: BP 134/59
[2022-07-22] MEDS: methylPREDNISolone SOD SUCC 125 MG/2 ML VL IV SCH (09:06)
[2022-07-22] MEDS: FUROSEMIDE 20 MG/2 ML VIAL IV SCH (09:07)
[2022-07-22] MEDS: cefTRIAXone 1GM/50ML D5W 50 ML IV SCH (09:07)
[2022-07-22] MEDS: POTASSIUM CHL 20 Meq TABLET PO SCH (09:07)
[2022-07-22] MEDS: ENOXAPARIN SOD 40 MG/0.4 ML SYRINGE SC SCH (09:07)
[2022-07-22] MEDS: PATIENTS OWN MEDICATION (Simvastatin 20 MG) PO SCH (09:08)
[2022-07-22] MEDS: SODIUM CHLOR 0.9% PF (SALINE LOCK) 10ML VIAL/SYR IV SCH (09:08)
[2022-07-22] MEDS ORDERED: PRED20TA2 PO (10:29)
[2022-07-22] MEDS ORDERED: AMOX500T86 PO (10:29)
[2022-07-22] MEDS: AZITHROMYCIN 500MG/ 250ML 250 ML IV SCH (10:36)
[2022-07-22 13:00] VITALS: BP 118/64
[2022-07-22 13:02] VITALS: BP 134/59
== END 2022-07-22 15:27 | disposition hospice, home (50) | DRG 177 ==
LOC: ER 23:06 → TELE 07-18 11:22 → TELE-WESTW 07-19 17:49
PROVIDERS: ADMIT Registered Nurse; ATTEND Internal Medicine Pulmonary Disease
PROC: 02HV33Z Insertion of Infusion Device into Superior Vena Cava, Percutaneous Approach (ICD-10-PCS; principal; 2022-07-18)
PROC: B548ZZA Ultrasonography of Superior Vena Cava, Guidance (ICD-10-PCS; 2022-07-18)
DX: J15.6 Pneumonia due to other Gram-negative bacteria (principal); J96.21 Acute and chronic respiratory failure with hypoxia; J44.1 Chronic obstructive pulmonary disease with (acute) exacerbation; E87.3 Alkalosis; J44.0 Chronic obstructive pulmonary disease with (acute) lower respiratory infection; E86.0 Dehydration; I10 Essential (primary) hypertension; R60.9 Edema, unspecified; R79.89 Other specified abnormal findings of blood chemistry; E78.5 Hyperlipidemia, unspecified; Z20.822 Contact with and (suspected) exposure to COVID-19; E11.9 Type 2 diabetes mellitus without complications; E66.01 Morbid (severe) obesity due to excess calories; Z71.3 Dietary counseling and surveillance; Z90.710 Acquired absence of both cervix and uterus; Z68.39 Body mass index [BMI] 39.0-39.9, adult; Z82.49 Family history of ischemic heart disease and other diseases of the circulatory system; Z79.899 Other long term (current) drug therapy; Z90.49 Acquired absence of other specified parts of digestive tract; J15.9 Unspecified bacterial pneumonia
CPT/HCPCS: 36415; 36569; 36600; 71045; 71275; 80048; 80053; 80061; 81001; 82805; 82962; 83036; 83690; 83735; 83880; 84443; 84484; 85025; 85379; 85610; 85730; 87040; 87426; 87804; 93005; 93306; 93970; 94640; 94644; 96365; 96366; 96367; 96375; G0378; J0696; J1100; J1815